=== PATIENT | female | born 1940 | race Caucasian/White ===

== ENCOUNTER 2016-11-25 00:12 | Emergency (ER) | payer MEDICARE, BC ==
[~2016-11-25 00:12] MED LIST changes: -BENTYL 10MG10 MG/CAP PO; -FLAGYL500 M1 PO; -PERCOCET 325 MG1 TA2 PO; -ZOFRAN ODT8 M1 PO
[2016-11-25] MEDS ORDERED: FLAGYL500 M1 PO (07:29)
[2016-11-25] MEDS ORDERED: BENTYL 10MG10 MG/CAP PO (07:34)
[2016-11-25] MEDS ORDERED: ZOFRAN ODT8 M1 PO (07:34)
[2016-11-25] MEDS ORDERED: PERCOCET 325 MG1 TA2 PO (07:34)
[2016-11-25 08:10] VITALS: BP 132/63
== END 2016-11-25 08:10 | disposition home or self-care (01) ==
LOC: ED 00:12
DX: E86.0 Dehydration (principal); E87.1 Hypo-osmolality and hyponatremia; A09 Infectious gastroenteritis and colitis, unspecified
CPT/HCPCS: J2405; J7030; Q9967

== ENCOUNTER → 2016-11-25 | Outpatient (CLI) | payer MEDICARE, BC ==
[~2016-11-25] MED LIST: AMBIEN 5MG TABLE5 MG PO; AVALIDE 12.5 MG1 TAB PO; BENTYL 10MG10 MG/CAP PO; CALCIUM500 MG PO; CENTRUM SILVER1 TA1 PO; FISH OIL500 MG PO; FLAGYL500 M1 PO; LUTEIN6 M1 PO; METOPROLOL SUCC50 MG PO; MULTIPLE VITAMI1 CAP PO; PERCOCET 325 MG1 TA2 PO; SIMVASTATIN40 MG PO; ST. JOSEPH81 M1 PO; VITAMIN D5000 I2 PO; XALATAN 2.5 ML2.5 ML OP; ZOFRAN ODT8 M1 PO
[2016-11-25 08:10] VITALS: BP 132/63
--- NOTE | 2016-11-25 19:00 | NUR ---
PATIENT'S BROUGHT SMALL AMOUNT OF SAMPLE IN AFTER THE SAMPLE COULD NOT BE OBTAINED IN THE ED. SAMPLE WAS FORMED, BUT SOFT. THERE WAS NOT ENOUGH SAMPLE TO RUN BOTH THE C-DIFF TOXIN AND THE OVA AND PARASITE, AND AFTER DISCUSSION WITH PROVIDER AND LAB, OVA AND PARASITE ORDER CANCELLED.
== END ==
LOC: LAB 19:00
DX: A09 Infectious gastroenteritis and colitis, unspecified (principal)

== ENCOUNTER 2017-06-06 18:17 | Emergency (ER) | payer MEDICARE, BC ==
[~2017-06-06] VITALS: Ht 160 cm; Wt 64.0 kg
[~2017-06-06 18:17] MED LIST changes: -AMBIEN 5MG TABLE5 MG PO; +AMBIEN5 M1 PO; +BENTYL 10MG10 MG/CAP PO; -CALCIUM500 MG PO; +CITRACAL-VIT D1 EACH PO; -FISH OIL500 MG PO; +FLAGYL500 M1 PO; +LUTEIN10 MG PO; -LUTEIN6 M1 PO; +METOPROLOL SUCC50 M1 PO; -METOPROLOL SUCC50 MG PO; +OMEGA-3 FISH O1 EAC4 PO; +PERCOCET 325 MG1 TA2 PO; +VITAMIN D400 UNI1 PO; -VITAMIN D5000 I2 PO; -XALATAN 2.5 ML2.5 ML OP; +XALATAN 2.5 ML2.5 ML OU; +ZOFRAN ODT8 M1 PO
[2017-06-06] MEDS ORDERED: THERATEARS 15 M15 ML OU (18:47)
[2017-06-06] MEDS ORDERED: CRANBERRY200 MG PO (18:50)
[2017-06-06] MEDS ORDERED: TYLENOL 325MG325 MG (18:50)
[2017-06-06] MEDS ORDERED: GINGER ROOT EX250 MG (18:51)
[2017-06-06 19:18] LABS: HEMATOCRIT 37.9 % (37.0-47.0); HEMOGLOBIN 13.3 g/dL (12.5-16.0); MEAN CELL VOLUME 90 fl (78-100); MEAN CORPUSCULAR HEMOGLOBIN 32 pg (27-31); MEAN CORPUSCULAR HGB CONC 35 g/dL (33-37); MEAN PLATELET VOLUME 8.9 fl (7.4-10.4); PLATELET COUNT 141 K/mm3 (130-400); RED BLOOD COUNT 4.21 M/mm3 (4.10-5.30); RED CELL DISTRIBUTION WIDTH 12.4 % (11.5-14.5); WHITE BLOOD COUNT 7.5 K/mm3 (4.8-10.8)
[2017-06-06 19:24] LABS: ALBUMIN 3.8 g/dL (3.5-5.0); BUN/CREATININE RATIO 13.4 (6.0-26.0); CALCIUM 9.3 mg/dL (8.4-10.2); POTASSIUM 3.4 mmol/L (3.6-5.0); TOTAL BILIRUBIN 1.8 mg/dL (0.2-1.3); TOTAL PROTEIN 7.1 g/dL (6.3-8.2)
[2017-06-06 19:50] LABS: LYMPHOCYTE 16 % (20-51); MONOCYTE 11 % (3-10); NEUTROPHILS 73 % (42-75)
[2017-06-06 20:16] LABS: D-DIMER 0.33 mg/L FEU (0.15-0.50)
[2017-06-06 20:44] LABS: URINE APPEARANCE CLOUDY; URINE COLOR YELLOW; URINE GLUCOSE NEGATIVE (NEGATIVE); URINE KETONE 1+ (NEGATIVE); URINE PROTEIN(semi-quant) TRACE mg/dL (NEGATIVE)
[2017-06-06 20:45] LABS: URINE BILIRUBIN NEGATIVE (NEGATIVE); URINE BLOOD TRACE (NEGATIVE); URINE LEUKOCYTE ESTERASE 2+ (NEGATIVE); URINE NITRATE POSITIVE (NEGATIVE); URINE UROBILINOGEN NORMAL (NORMAL); URINE WBC 16-30 /hpf (0-3)
[2017-06-06] MEDS ORDERED: KEFLEX250 M1 PO (21:45)
[2017-06-06 22:36] VITALS: BP 147/66
== END 2017-06-06 22:36 | disposition home or self-care (01) ==
LOC: ED 18:17
PROVIDERS: Nurse Practitioner
DX: N39.0 Urinary tract infection, site not specified (principal); E87.1 Hypo-osmolality and hyponatremia; R55 Syncope and collapse; I10 Essential (primary) hypertension; E78.00 Pure hypercholesterolemia, unspecified; H40.9 Unspecified glaucoma
CPT/HCPCS: J0696; J7030

== ENCOUNTER → 2018-08-17 | Outpatient (CLI) | payer MEDICARE, BC ==
[~2018-08-17] VITALS: Ht 160 cm; Wt 60.9 kg
[~2018-08-17] MED LIST changes: +CRANBERRY200 MG PO; +GINGER ROOT EX250 MG; +KEFLEX250 M1 PO; +THERATEARS 15 M15 ML OU; +TYLENOL 325MG325 MG
[2018-08-17 11:56] VITALS: BP 90/67
[2018-08-17 14:10] VITALS: BP 126/54
== END ==
LOC: AMSURD 11:44
DX: E86.0 Dehydration (principal); N39.0 Urinary tract infection, site not specified; E87.1 Hypo-osmolality and hyponatremia
CPT/HCPCS: J7030

== ENCOUNTER → 2018-08-20 | Outpatient (CLI) | payer MEDICARE, BC ==
[2018-08-17 14:10] VITALS: BP 126/54
[2018-08-20 08:48] LABS: EOS # 0.2 (0.04-0.40); EOS % 3.5 % (1.0-5.0); HEMATOCRIT 37.4 % (37.0-47.0); HEMOGLOBIN 12.9 g/dL (12.5-16.0); LYMPH# 2.2 (1.50-4.00); MEAN CELL VOLUME 91 fl (78-100); MEAN CORPUSCULAR HEMOGLOBIN 32 pg (27-31); MEAN CORPUSCULAR HGB CONC 35 g/dL (33-37); MEAN PLATELET VOLUME 8.5 fl (7.4-10.4); MONO # 0.6 (0.20-0.80); NEU # 2.1 (1.40-6.50); PLATELET COUNT 321 K/mm3 (130-400); RED BLOOD COUNT 4.09 M/mm3 (4.10-5.30); WHITE BLOOD COUNT 5.1 K/mm3 (4.8-10.8)
[2018-08-20 08:49] LABS: ALBUMIN 4.2 g/dL (3.5-5.0); CALCIUM 9.6 mg/dL (8.4-10.2); POTASSIUM 3.8 mmol/L (3.6-5.0); TOTAL BILIRUBIN 0.9 mg/dL (0.2-1.3); TOTAL PROTEIN 7.4 g/dL (6.3-8.2)
== END ==
LOC: LAB 07:27
PROVIDERS: Nurse Practitioner Family
DX: N10 Acute pyelonephritis (principal); R53.1 Weakness; R55 Syncope and collapse; R94.5 Abnormal results of liver function studies; E87.1 Hypo-osmolality and hyponatremia; E87.6 Hypokalemia

== ENCOUNTER → 2018-09-13 | Outpatient (CLI) | payer MEDICARE, BC ==
[2018-08-17 14:10] VITALS: BP 126/54
== END ==
LOC: RAD 07:15
DX: R74.0 Nonspecific elevation of levels of transaminase and lactic acid dehydrogenase [LDH] (principal)

== ENCOUNTER → 2021-10-20 | Outpatient (CLI) | payer MEDICARE, BC | LOC: RAD 11:18 → MAMMO 11:18 | DX: Z78.0 Asymptomatic menopausal state (principal) ==

== ENCOUNTER → 2022-01-24 | Outpatient (CLI) | payer MEDICARE, BC | LOC: VAS 13:49 → RAD 14:00 | DX: I65.22 Occlusion and stenosis of left carotid artery (principal) ==

== ENCOUNTER → 2023-12-18 | Outpatient (CLI) | payer MEDICARE, BC | LOC: MAMMO 13:30 → RAD 13:33 | DX: Z13.820 Encounter for screening for osteoporosis (principal); Z78.0 Asymptomatic menopausal state ==